=== PATIENT | female | born 1970 | race Caucasian/White ===

== ENCOUNTER 2017-07-28 14:36 | Emergency (ER) | payer BC ==
[2017-07-28] MEDS ORDERED: Aspirin 81 mg CHEW TAB* 81 MG TAB.CHEW PO ONE (14:44)
[2017-07-28 15:13] LABS: ABS Basophils 0.1 10^3/ul (0-0.2); ABS Eosinophils 0.2 10^3/ul (0-0.6); ABS Lymphocytes 1.8 10^3/ul (1.0-4.8); ABS Monocytes 0.7 10^3/ul (0-0.8); ABS Neutrophils 6.4 10^3/ul (1.5-7.7); ABS Nucleated RBC 0 10^3/ul; Eosinophil % 2.5 % (0-6); Hematocrit 39 % (35-47); Hemoglobin 13.8 g/dl (12.0-16.0); Lymphocyte % 19.1 % (25-47); Mean Corpuscular HGB Conc 35 g/dl (31-36); Mean Corpuscular Hemoglobin 30 pg (27-31); Mean Corpuscular Volume 85 fL (80-97); Nucleated Red Blood Cells % 0; Platelet Count 261 10^3/ul (150-450); Red Blood Count 4.61 10^6/ul (4.0-5.4); Red Cell Distribution Width 15 % (10.5-15); White Blood Count 9.2 10^3/ul (3.5-10.8)
[2017-07-28 15:14] LABS: INR 0.84 (0.77-1.02)
[2017-07-28 15:15] LABS: Urine Appearance Clear; Urine Blood 2+ (Negative); Urine Color Yellow; Urine Ketones Negative (Negative); Urine Protein Negative (Negative); Urine Specific Gravity 1.011 (1.010-1.030); Urine Urobilinogen Negative (Negative)
[2017-07-28 15:35] LABS: EGFR Non-African American 89.7 (>60)
--- NOTE | 2017-07-28 15:50 | RAD ---
Indication: Chest pain since last night. Comparison: No relevant prior exams available on the [facility] PACS for comparison. Technique: Upright AP 1527 hours Report: Clear lungs and pleural spaces. Negative for pneumothorax. The heart, pulmonary vasculature, and mediastinal contours are unremarkable. Unremarkable osseous structures and soft tissue contours. IMPRESSION: No evidence for acute intrathoracic disease.
[2017-07-28] MEDS ORDERED: Omeprazole CAP* 20 MG PO ONE (16:08)
--- NOTE | 2017-07-28 18:09 | ED ---
Rod Rice Julia, scribed for Karla Andres MD on 07/28/17 at 1448 . HPI Chest Pain - HPI Summary HPI Summary: This patient is a 46 year old F presenting to [facility] with a chief complaint of intermittent pressure like chest pain since last night that has worsened today with sharp chest pain that radiates into her upper back. Pt is sent from [facility]. Patient reports ear ache, indigestion, and nausea yesterday that is currently resolved. Patient denies lower extremity pain, radiating pain into jaw or upper extremities, SOB, and recent illness. This is her first time with chest pain. She states her daughter who is a nursing service director told her that her heart rate is a little. Pt takes supplements daily including Thyropin ( quarter of one daily), magnesium, and a supplement to improve estrogen levels due to a hysterectomy. Pt's only cardiac risk factor is FMHx. - History of Current Complaint Time Seen by Provider: 07/28/17 14:44 Hx Obtained From: Patient Onset/Duration: Started Days Ago Timing: Intermittent Initial Severity: Mild Current Severity: Moderate Chest Pain Location: Mid Sternal Chest Pain Radiates: Yes Chest Pain Radiates To:: Back Character: Pressure/Squeezing, Sharp/Stabbing Aggravating Factor(s): Nothing Alleviating Factor(s): Nothing Associated Signs and Symptoms: Positive: Nausea, Other: - ear pain. Negative: Shortness of Breath - Allergy/Home Medications Allergies/Adverse Reactions: Allergies Allergy/AdvReac Type Severity Reaction Status Date / Time No Known Allergies Allergy Verified 07/28/17 14:55 PMH/Surg Hx/FS Hx/Imm Hx Cardiovascular History: Denies: Hx Hypertension, Hx Myocardial Infarction EENT History: Denies: Hx Deafness - Surgical History Surgery Procedure, Year, and Place: hysterectomy, tonsilectomy - Family History Known Family History: Positive: Cardiac Disease - [place] grandfather, CAD with two stents father - Social History Occupation: Employed Full-time Lives: With Family Hx Substance Use: No Hx Tobacco Use: No Smoking Status (MU): Never Smoked Tobacco Review of Systems Positive: Ear Ache Positive: Chest Pain Negative: Shortness Of Breath Positive: Nausea Positive: Myalgia - back pain All Other Systems Reviewed And Are Negative: Yes Physical Exam - Summary Physical Exam Summary: Appearance: Ill-appearing, moderate pain distress, Well-nourished Skin: Warm, color reflects adequate perfusion Head: Normal Head/Face inspection Eyes: Conjunctiva clear ENT: Normal inspection Neck: Supple, no nodes, no JVD. Respiratory: Lungs clear, Normal breath sounds, no respiratory distress Cardio: RRR, No murmur, pulses normal, brisk capillary refill Abdomen: soft, nontender Bowel sounds: present Musculoskeletal: Strength Intact/ ROM intact. No calf tenderness. No edema. Psychological: Normal Neuro: Alert, muscle tone normal, no focal deficit Triage Information Reviewed: Yes Vital Signs On Initial Exam: Initial Vitals Temp Pulse Resp BP Pulse Ox 98.3 F 88 16 160/83 98 07/28/17 14:50 07/28/17 14:50 07/28/17 14:50 07/28/17 14:50 07/28/17 14:50 Vital Signs Reviewed: Yes Diagnostics - Vital Signs Vital Signs Temp Pulse Resp BP Pulse Ox 07/28/17 15:00 87 12 98 07/28/17 14:55 90 16 98 07/28/17 14:54 87 160/83 97 07/28/17 14:50 98.3 F 88 16 160/83 98 - Laboratory Lab Results: Lab Results 07/28/17 07/28/17 07/28/17 Range/Units 14:50 15:00 15:00 WBC (3.5-10.8) 10^3/ul RBC (4.0-5.4) 10^6/ul Hgb (12.0-16.0) g/dl Hct (35-47) % MCV (80-97) fL MCH (27-31) pg MCHC (31-36) g/dl RDW (10.5-15) % Plt Count (150-450) 10^3/ul MPV (7.4-10.4) um3 Neut % (Auto) (38-83) % Lymph % (Auto) (25-47) % [place] % (Auto) (0-7) % Eos % (Auto) (0-6) % Baso % (Auto) (0-2) % Absolute Neuts (auto) (1.5-7.7) 10^3/ul Absolute Lymphs (auto) (1.0-4.8) 10^3/ul Absolute Monos (auto) (0-0.8) 10^3/ul Absolute Eos (auto) (0-0.6) 10^3/ul Absolute Basos (auto) (0-0.2) 10^3/ul Absolute Nucleated RBC 10^3/ul Nucleated RBC % INR (Anticoag Therapy) (0.77-1.02) D-Dimer, Quantitative (Less Than 230) ng/mL Sodium 137 L (139-145) mmol/L Potassium 3.8 (3.5-5.0) mmol/L Chloride 102 (101-111) mmol/L Carbon Dioxide 25 (22-32) mmol/L Anion Gap 10 (2-11) mmol/L BUN 12 (6-24) mg/dL Creatinine 0.70 (0.51-0.95) mg/dL Est GFR ( Amer) 115.4 (>60) Est GFR (Non-Af Amer) 89.7 (>60) BUN/Creatinine Ratio 17.1 (8-20) Glucose 86 (70-100) mg/dL Lactic Acid (0.5-2.0) mmol/L Calcium 9.8 (8.6-10.3) mg/dL Magnesium 2.0 (1.9-2.7) mg/dL Total Bilirubin 0.30 (0.2-1.0) mg/dL AST 26 (13-39) U/L ALT 28 (7-52) U/L Alkaline Phosphatase 70 (34-104) U/L Total Creatine Kinase 56 (10-223) U/L CK-MB (CK-2) 1.6 (0.6-6.3) ng/mL Troponin I 0.00 (<0.04) ng/mL B-Natriuretic Peptide 19 ( - 100) pg/mL Total Protein 7.9 (6.4-8.9) g/dL Albumin 4.0 (3.2-5.2) g/dL Globulin 3.9 (2-4) g/dL Albumin/Globulin Ratio 1.0 (1-3) TSH 1.59 (0.34-5.60) mcIU/mL Thyroxine (T4) 10.17 (6.09-12.23) mcg/mL Beta HCG, Quant < 0.60 mIU/mL Urine Color Yellow Urine Appearance Clear Urine pH 6.0 (5-9) Ur Specific [place] 1.011 (1.010-1.030) Urine Protein Negative (Negative) Urine Ketones Negative (Negative) Urine Blood 2+ A (Negative) Urine Nitrate Negative (Negative) Urine Bilirubin Negative (Negative) Urine Urobilinogen Negative (Negative) Ur Leukocyte Esterase Negative (Negative) Urine WBC (Auto) Absent (Absent) Urine RBC (Auto) 1+(3-5/hpf) A (Absent) Ur Squamous Epith Cells Present A (Absent) Urine Bacteria Absent (Absent) Urine Glucose Negative (Negative) 07/28/17 07/28/17 07/28/17 Range/Units 15:00 15:00 15:00 WBC 9.2 (3.5-10.8) 10^3/ul RBC 4.61 (4.0-5.4) 10^6/ul Hgb 13.8 (12.0-16.0) g/dl Hct 39 (35-47) % MCV 85 (80-97) fL MCH 30 (27-31) pg MCHC 35 (31-36) g/dl RDW 15 (10.5-15) % Plt Count 261 (150-450) 10^3/ul MPV 8.0 (7.4-10.4) um3 Neut % (Auto) 69.0 (38-83) % Lymph % (Auto) 19.1 L (25-47) % [place] % (Auto) 8.0 H (0-7) % Eos % (Auto) 2.5 (0-6) % Baso % (Auto) 1.4 (0-2) % Absolute Neuts (auto) 6.4 (1.5-7.7) 10^3/ul Absolute Lymphs (auto) 1.8 (1.0-4.8) 10^3/ul Absolute Monos (auto) 0.7 (0-0.8) 10^3/ul Absolute Eos (auto) 0.2 (0-0.6) 10^3/ul Absolute Basos (auto) 0.1 (0-0.2) 10^3/ul Absolute Nucleated RBC 0 10^3/ul Nucleated RBC % 0 INR (Anticoag Therapy) 0.84 (0.77-1.02) D-Dimer, Quantitative < 200 (Less Than 230) ng/mL Sodium (139-145) mmol/L Potassium (3.5-5.0) mmol/L Chloride (101-111) mmol/L Carbon Dioxide (22-32) mmol/L Anion Gap (2-11) mmol/L BUN (6-24) mg/dL Creatinine (0.51-0.95) mg/dL Est GFR ( Amer) (>60) Est GFR (Non-Af Amer) (>60) BUN/Creatinine Ratio (8-20) Glucose (70-100) mg/dL Lactic Acid 1.3 (0.5-2.0) mmol/L Calcium (8.6-10.3) mg/dL Magnesium (1.9-2.7) mg/dL Total Bilirubin (0.2-1.0) mg/dL AST (13-39) U/L ALT (7-52) U/L Alkaline Phosphatase (34-104) U/L Total Creatine Kinase (10-223) U/L CK-MB (CK-2) (0.6-6.3) ng/mL Troponin I (<0.04) ng/mL B-Natriuretic Peptide ( - 100) pg/mL Total Protein (6.4-8.9) g/dL Albumin (3.2-5.2) g/dL Globulin (2-4) g/dL Albumin/Globulin Ratio (1-3) TSH (0.34-5.60) mcIU/mL Thyroxine (T4) (6.09-12.23) mcg/mL Beta HCG, Quant mIU/mL Urine Color Urine Appearance Urine pH (5-9) Ur Specific [place] (1.010-1.030) Urine Protein (Negative) Urine Ketones (Negative) Urine Blood (Negative) Urine Nitrate (Negative) Urine Bilirubin (Negative) Urine Urobilinogen (Negative) Ur Leukocyte Esterase (Negative) Urine WBC (Auto) (Absent) Urine RBC (Auto) (Absent) Ur Squamous Epith Cells (Absent) Urine Bacteria (Absent) Urine Glucose (Negative) Result Diagrams: 07/28/17 15:00 07/28/17 15:00 Lab Statement: Any lab studies that have been ordered have been reviewed, and results considered in the medical decision making process. - Radiology CXR Radiology Interpretation Completed By: Radiologist - No evidence for acute intrathoracic disease. ED Physician has reviewed this report. - EKG 1436 Cardiac Rate: NL EKG Rhythm: Sinus Rhythm - at [address] Segment: Non-Specific Ectopy: None EKG Interpretation: nml AVIVCT, nml QTc, nml axis EKG Comparison: No Significant Change - from 5 star EKG performed at 1404 Re-Evaluation - Re-Evaluation 1 Re-Evaluation Time: 16:00 Change: Improved - Pt is sitting up reading a book. Still has a twinge of pain in her left ant chest. States the heaviness is gone. Will try omeprazole. Informed of her first troponin zero. Will do 3 hr troponin. Second Eval Re-Evaluation Time: 18:06 Change: Improved - Second troponin is zero. Pt's chest discomfort is relieved. Pt is agreeable to discharge. Chest Pain Course/Dx - Course Course Of Treatment: Pt has HEART score of 2, JONATHAN score zero. Pt still with some chest pain at 1600, will check second 3 hr troponin, and treat with omeprazole now. - Chest Pain Differential Diagnosis/HQI/PQRI: Acute [place], ACS, Angina, Chest Wall, GI Disease, Pulmonary Embolism - Diagnoses Provider Diagnoses: Chest pain Discharge - Discharge Plan Condition: Stable Disposition: HOME Referrals: Jean Claude Schuster MD [Primary Care Provider] - - Billing Disposition and Condition Condition: STABLE Disposition: HOME The documentation as recorded by the Rod mosqueda Julia accurately reflects the service I personally performed and the decisions made by , Karla Andres MD.
[2017-07-28 18:16] VITALS: BP 134/81
== END 2017-07-28 18:16 | disposition home or self-care (01) ==
LOC: ED 14:36
DX: R07.9 Chest pain, unspecified (principal); H92.09 Otalgia, unspecified ear; M54.9 Dorsalgia, unspecified
CPT/HCPCS: 36415; 71045; 80053; 81003; 81015; 82550; 82553; 83605; 83735; 83880; 84436; 84443; 84484; 84702; 85025; 85379; 85610; 93005; 99283; A9270-GY